=== PATIENT | female | born 1985 | race Caucasian/White ===

== ENCOUNTER 2016-12-26 19:11 | Emergency (ER) | payer MEDICAID ==
[2014-03-24 01:52] VITALS: BMI 30.3
[~2016-12-26 19:11] MED LIST: IBUPROFEN800 MG PO; PERCOCET 5-3251 TAB PO; PRENATAL COMPLE1 TAB PO
[2016-12-26 20:00] LABS: BASOPHILS 0.3 % (0.0-2.0); EOSINOPHILS 1.9 % (0-7); HEMATOCRIT 38.7 % (36.0-48.0); IMMATURE GRANULOCYTES 0.1 % (0-5); MCHC 33.6 g/dL (31.0-37.0); MCV 86.4 fL (80.0-100.0); MEAN PLATELET VOLUME 9.8 fL (7.4-10.4); MONOCYTES 9.9 % (2-11); NEUTROPHILS 58.8 % (40-80); PLATELET COUNT 272 10x3/uL (130-400); RBC 4.48 10x6/uL (4.00-5.40); RDW 13.1 % (11.5-14.5); WBC 7.8 10x3/uL (4.8-10.8)
[2016-12-26 20:21] LABS: ALBUMIN 3.9 g/dL (3.4-5.0); ALKALINE PHOSPHATASE 56 U/L (46-116); ALT (SGPT) 15 U/L (10-68); CALC OSMOLALITY 273 mosm/kg (275-300); CALCIUM 9.1 mg/dL (8.5-10.1); CARBON DIOXIDE 26.6 mmol/L (21.0-32.0); CHLORIDE - SERUM 102 mmol/L (98-107); CREATININE - SERUM 0.6 mg/dL (0.6-1.3); GLUCOSE 88 mg/dL (74-106); POTASSIUM - SERUM 3.4 mmol/L (3.5-5.1); PROTEIN - SERUM 7.5 g/dL (6.4-8.2); SODIUM 138 mmol/L (136-145); UREA NITROGEN 11 mg/dL (7-18); eGFR NON AFRICAN AMERICAN > 90 mL/min (90-120)
[2016-12-26 22:50] LABS: APPEARANCE CLEAR (CLEAR); BACTERIA MANY /hpf (NONE SEEN); BILIRUBIN NEGATIVE (NEGATIVE); COLOR YELLOW (YELLOW); EPITHELIAL CELLS 0-5 /hpf (0-5); GLUCOSE NEGATIVE (NEGATIVE); KETONE NEGATIVE (NEGATIVE); LEUKOCYTE ESTERASE 1+ (NEGATIVE); NITRITE POSITIVE (NEGATIVE); PROTEIN NEGATIVE (NEGATIVE); RED CELLS - URINE OCC /hpf (0-5); UROBILINOGEN NORMAL (NORMAL); WHITE CELLS - URINE 0-5 /hpf (0-5)
== END 2016-12-26 23:05 | disposition home or self-care (01) ==
LOC: D.ER 19:11
PROVIDERS: Emergency Medicine
DX: O20.8 Other hemorrhage in early pregnancy (principal); Z3A.01 Less than 8 weeks gestation of pregnancy

== ENCOUNTER 2016-12-31 16:08 | Emergency (ER) | payer MEDICAID ==
[2014-03-24 01:52] VITALS: BMI 30.3
[2016-12-31 17:05] LABS: BASOPHILS 0.1 % (0.0-2.0); EOSINOPHILS 1.9 % (0-7); HEMATOCRIT 37.3 % (36.0-48.0); HEMOGLOBIN 12.5 g/dL (12-16); IMMATURE GRANULOCYTES 0.1 % (0-5); LYMPHOCYTES 25.9 % (15-50); MCH 29.1 pg (26.0-34.0); MCHC 33.5 g/dL (31.0-37.0); MCV 86.7 fL (80.0-100.0); MEAN PLATELET VOLUME 9.8 fL (7.4-10.4); PLATELET COUNT 267 10x3/uL (130-400); RDW 13.3 % (11.5-14.5); WBC 7.4 10x3/uL (4.8-10.8)
[2016-12-31 17:20] LABS: HCG SERUM POSITIVE (NEGATIVE)
[2016-12-31 17:44] LABS: ALBUMIN 3.7 g/dL (3.4-5.0); ALKALINE PHOSPHATASE 56 U/L (46-116); ALT (SGPT) 16 U/L (10-68); BILIRUBIN - TOTAL 0.15 mg/dL (0.2-1.3); CALC OSMOLALITY 271 mosm/kg (275-300); CALCIUM 8.4 mg/dL (8.5-10.1); CARBON DIOXIDE 24.2 mmol/L (21.0-32.0); CHLORIDE - SERUM 102 mmol/L (98-107); CREATININE - SERUM 0.6 mg/dL (0.6-1.3); GLUCOSE 98 mg/dL (74-106); POTASSIUM - SERUM 3.5 mmol/L (3.5-5.1); PROTEIN - SERUM 7.3 g/dL (6.4-8.2); SODIUM 137 mmol/L (136-145); UREA NITROGEN 8 mg/dL (7-18); eGFR NON AFRICAN AMERICAN > 90 mL/min (90-120)
[2016-12-31 17:55] LABS: HCG - QUANTITATIVE (MATERNAL) 65692 mIU/mL
== END 2016-12-31 20:09 | disposition home or self-care (01) ==
LOC: D.ER 16:08
PROVIDERS: Emergency Medicine
DX: O26.891 Other specified pregnancy related conditions, first trimester (principal); Z3A.08 8 weeks gestation of pregnancy; R10.9 Unspecified abdominal pain; N93.9 Abnormal uterine and vaginal bleeding, unspecified

== ENCOUNTER 2017-02-11 10:49 | Emergency (ER) | payer MEDICAID ==
[2014-03-24 01:52] VITALS: BMI 30.3
[2017-02-11 11:34] LABS: BASOPHILS 0.1 % (0-2); EOSINOPHILS 1.6 % (0-7); HEMATOCRIT 39.7 % (36.0-48.0); HEMOGLOBIN 13.3 g/dL (12-16); IMMATURE GRANULOCYTES 0.1 % (0-5); MCH 28.9 pg (26.0-34.0); MCHC 33.5 g/dL (31.0-37.0); MCV 86.1 fL (80.0-100.0); MEAN PLATELET VOLUME 9.6 fL (7.4-10.4); MONOCYTES 6.1 % (2-11); NEUTROPHILS 68.1 % (40-80); PLATELET COUNT 285 10x3/uL (130-400); RBC 4.61 10x6/uL (4.00-5.40); RDW 12.8 % (11.5-14.5); WBC 7.7 10x3/uL (4.8-10.8)
[2017-02-11 11:52] LABS: HCG SERUM POSITIVE (NEGATIVE)
[2017-02-11 12:01] LABS: ALBUMIN 3.5 g/dL (3.4-5.0); ALKALINE PHOSPHATASE 61 U/L (46-116); ALT (SGPT) 19 U/L (10-68); BILIRUBIN - TOTAL 0.23 mg/dL (0.2-1.3); CALC OSMOLALITY 270 mosm/kg (275-300); CALCIUM 8.8 mg/dL (8.5-10.1); CARBON DIOXIDE 28.1 mmol/L (21.0-32.0); CHLORIDE - SERUM 103 mmol/L (98-107); CREATININE - SERUM 0.6 mg/dL (0.6-1.3); GLUCOSE 89 mg/dL (74-106); POTASSIUM - SERUM 3.6 mmol/L (3.5-5.1); PROTEIN - SERUM 7.9 g/dL (6.4-8.2); SODIUM 137 mmol/L (136-145); UREA NITROGEN 7 mg/dL (7-18); eGFR NON AFRICAN AMERICAN > 90 mL/min (90-120)
[2017-02-11 12:03] LABS: APPEARANCE CLOUDY (CLEAR); BILIRUBIN NEGATIVE (NEGATIVE); COLOR YELLOW (YELLOW); GLUCOSE NEGATIVE (NEGATIVE); KETONE NEGATIVE (NEGATIVE); LEUKOCYTE ESTERASE 1+ (NEGATIVE); NITRITE NEGATIVE (NEGATIVE); PROTEIN NEGATIVE (NEGATIVE); UROBILINOGEN NORMAL (NORMAL)
[2017-02-11 12:05] LABS: AMORPHOUS SEDIMENT >1+ /lpf (NONE SEEN); BACTERIA FEW /hpf (NONE SEEN); EPITHELIAL CELLS 0-5 /hpf (0-5); MUCUS <1+ /lpf (NONE SEEN); RED CELLS - URINE NONE SEEN /hpf (0-5); WHITE CELLS - URINE 0-5 /hpf (0-5)
[2017-02-11 12:25] LABS: HCG - QUANTITATIVE (MATERNAL) 17500 mIU/mL
== END 2017-02-11 14:37 | disposition home or self-care (01) ==
LOC: D.ER 10:49
PROVIDERS: Emergency Medicine
DX: O26.891 Other specified pregnancy related conditions, first trimester (principal); Z3A.13 13 weeks gestation of pregnancy; R10.84 Generalized abdominal pain; N39.0 Urinary tract infection, site not specified

== ENCOUNTER → 2017-02-19 07:48 | Outpatient (CLI) | payer MEDICAID ==
[2014-03-24 01:52] VITALS: BMI 30.3
== END | disposition home or self-care (01) ==
LOC: D.US 07:48
DX: R10.11 Right upper quadrant pain (principal); R11.2 Nausea with vomiting, unspecified

== ENCOUNTER → 2017-07-04 03:47 | Outpatient (CLI) | payer MEDICAID ==
[2014-03-24 01:52] VITALS: BMI 30.3
[~2017-07-04 03:47] MED LIST changes: +HYDROCODONE-APA1 TAB PO; +IBUPROFEN600 MG PO
[2017-07-04 04:39] LABS: APPEARANCE CLOUDY (CLEAR); BILIRUBIN NEGATIVE (NEGATIVE); COLOR YELLOW (YELLOW); GLUCOSE 100 mg/dL (NEGATIVE); KETONE NEGATIVE (NEGATIVE); NITRITE NEGATIVE (NEGATIVE); PROTEIN TRACE mg/dL (NEGATIVE); UROBILINOGEN NORMAL (NORMAL)
[2017-07-04 04:41] LABS: BACTERIA MODERATE /hpf (NONE SEEN); EPITHELIAL CELLS 0-5 /hpf (0-5); RED CELLS - URINE 0-5 /hpf (0-5)
== END | disposition home or self-care (01) ==
LOC: D.LDO 03:47
PROVIDERS: Obstetrics & Gynecology
DX: O26.893 Other specified pregnancy related conditions, third trimester (principal); Z3A.34 34 weeks gestation of pregnancy; R11.2 Nausea with vomiting, unspecified; R10.9 Unspecified abdominal pain

== ENCOUNTER → 2017-07-10 23:21 | Outpatient (CLI) | payer MEDICAID ==
[2014-03-24 01:52] VITALS: BMI 30.3
== END | disposition home or self-care (01) ==
LOC: D.LDO 23:21
DX: O24.913 Unspecified diabetes mellitus in pregnancy, third trimester (principal); Z3A.35 35 weeks gestation of pregnancy

== ENCOUNTER → 2017-07-15 07:51 | Outpatient (CLI) | payer MEDICAID ==
[2014-03-24 01:52] VITALS: BMI 30.3
== END | disposition home or self-care (01) ==
LOC: D.LDO 07:51
DX: O24.913 Unspecified diabetes mellitus in pregnancy, third trimester (principal); Z3A.35 35 weeks gestation of pregnancy

== ENCOUNTER → 2017-07-18 07:24 | Outpatient (CLI) | payer MEDICAID ==
[2014-03-24 01:52] VITALS: BMI 30.3
[2017-07-18 09:27] LABS: UDS - AMPHET NEGATIVE QUAL (NEGATIVE); UDS - BARB NEGATIVE QUAL (NEGATIVE); UDS - BENZO NEGATIVE QUAL (NEGATIVE); UDS - COCAINE NEGATIVE QUAL (NEGATIVE); UDS - OPIATE NEGATIVE QUAL (NEGATIVE); UDS - PCP NEGATIVE QUAL (NEGATIVE); UDS - THC NEGATIVE QUAL (NEGATIVE)
[2017-07-18 09:32] LABS: APPEARANCE CLEAR (CLEAR); BACTERIA FEW /hpf (NONE SEEN); BILIRUBIN NEGATIVE (NEGATIVE); COLOR YELLOW (YELLOW); EPITHELIAL CELLS 0-5 /hpf (0-5); GLUCOSE NEGATIVE (NEGATIVE); GRANULAR CAST 0-5 /lpf (NONE SEEN); KETONE NEGATIVE (NEGATIVE); MUCUS <1+ /lpf (NONE SEEN); NITRITE NEGATIVE (NEGATIVE); PROTEIN NEGATIVE (NEGATIVE); UROBILINOGEN NORMAL (NORMAL); WHITE CELLS - URINE 0-5 /hpf (0-5)
== END | disposition home or self-care (01) ==
LOC: D.LDO 07:24
PROVIDERS: Obstetrics & Gynecology
DX: O26.893 Other specified pregnancy related conditions, third trimester (principal); Z3A.36 36 weeks gestation of pregnancy

== ENCOUNTER → 2017-07-23 07:45 | Outpatient (CLI) | payer MEDICAID ==
[2014-03-24 01:52] VITALS: BMI 30.3
== END | disposition home or self-care (01) ==
LOC: D.LDO 07:45
DX: O24.419 Gestational diabetes mellitus in pregnancy, unspecified control (principal); Z3A.37 37 weeks gestation of pregnancy

== ENCOUNTER → 2017-07-25 09:47 | Outpatient (CLI) | payer MEDICAID ==
[2014-03-24 01:52] VITALS: BMI 30.3
== END | disposition home or self-care (01) ==
LOC: D.LDO 09:47
DX: O24.419 Gestational diabetes mellitus in pregnancy, unspecified control (principal); Z3A.37 37 weeks gestation of pregnancy

== ENCOUNTER 2017-07-26 04:56 | Inpatient (IN) | payer MEDICAID ==
[2017-07-26] VITALS (9 sets, daily range): BP systolic 97–111; BP diastolic 53–60; Ht 170.2 cm; Wt 93.0 kg
[~2017-07-26] VITALS: Ht 170.2 cm; Wt 93.0 kg
[~2017-07-26 04:56] MED LIST changes: -HYDROCODONE-APA1 TAB PO; -IBUPROFEN600 MG PO
[2017-07-26 05:44] LABS: HEMATOCRIT 36.1 % (36.0-48.0); HEMOGLOBIN 11.7 g/dL (12-16); MCH 26.6 pg (26.0-34.0); MCHC 32.4 g/dL (31.0-37.0); MEAN PLATELET VOLUME 10.6 fL (7.4-10.4); RBC 4.4 10x6/uL (4.00-5.40); RDW 13.8 % (11.5-14.5); WBC 8.7 10x3/uL (4.8-10.8)
--- NOTE | 2017-07-26 07:55 | NUR ---
0705 BABY TRANSFERED TO [facility] WITH NURSE AND FATHER
--- NOTE | 2017-07-26 08:12 | NUR ---
FUNDUS IS FIRM, MIDLINE AT THE UMBILICUS. JOSEPH PAD IN PLACE, MODERATE RUBRA.
--- NOTE | 2017-07-26 08:42 | NUR ---
fundus midline, firm and -1. bleeding small, no clots noted.
--- NOTE | 2017-07-26 09:08 | NUR ---
Patient to room from recovery at this time. Care assumed by this nurse. Patient denies pain at this time. VS wnl. SCD boots in place, incentive spirometer provided with education on use. Pt verbalizes understanding. chery catheter in place, draining well. stat lock applied and chery emptied of 500ml clear yellow urine. Low abdominal transverse dressing in place with small amt of serosanguinous drainage noted. significant other at bedside. Ice water provided, pt denies any other needs at this time.
--- NOTE | 2017-07-26 09:23 | NUR ---
fundus firm,midline. -1 bleeding small
--- NOTE | 2017-07-26 09:44 | NUR ---
TORADOL 30MG SLOW IVP AT THIS TIME PER MD ORDERS.
--- NOTE | 2017-07-26 09:48 | NUR ---
FUNDUS FIRM, MIDLINE, -1. BLEEDING RUBRA,SMALL. REAGAN CATHETER EMPTIED OF 175ML CLEAR YELLOW URINE. DILAUDID VISUAL C DEVELOPER INITIATED AT THIS TIME PER MD ORDERS AND PT TEACHING DONE ON MEDICATION AND USE. ICE TO INCISION REMAINS IN PLACE.
--- NOTE | 2017-07-26 10:50 | NUR ---
PATIENT SITTING UP IN BED INFANT AT THIS TIME. CRAMPING PAIN 2/10 TO ABDOMEN. FUNDUS REMAINS FIRM,ML-2. BLEEDING SCANT, REAGAN CATHETER DRAINING WITHOUT ISSUES, 150ML CLEAR YELLOW URINE EMPTIED FROM REAGAN CATHETER.
--- NOTE | 2017-07-26 12:21 | NUR ---
PATIENT SITTING IN BED, EATING LUNCH. ADMIT ASSESSMENT PERFORMED. REAGAN CATHETER EMPTIED OF 100ML CLEAR YELLOW URINE, FUNDUS FIRM,MIDLINE,-2, BLEEDIN SMALL. PERICARE PERFORMED AND PAD CHANGED.
[2017-07-26 14:06] LABS: BASOPHILS 0.1 % (0-2); EOSINOPHILS 0.2 % (0-7); HEMATOCRIT 29.8 % (36.0-48.0); HEMOGLOBIN 9.6 g/dL (12-16); IMMATURE GRANULOCYTES 0.3 % (0-5); LYMPHOCYTES 11.8 % (15-50); MCH 26.7 pg (26.0-34.0); MCHC 32.2 g/dL (31.0-37.0); MCV 82.8 fL (80.0-100.0); MEAN PLATELET VOLUME 9.3 fL (7.4-10.4); NEUTROPHILS 81.6 % (40-80); RDW 13.6 % (11.5-14.5)
[2017-07-26 14:07] LABS: PLATELET COUNT 250 10x3/uL (130-400); WBC 14.4 10x3/uL (4.8-10.8)
--- NOTE | 2017-07-26 14:38 | NUR ---
PATIENT LYING IN BED TALKING ON CELL PHONE. DENIES NEEDS, STATES PAIN REMAINS THE SAME- 2/10 CRAMPS TO ABDOMEN.
--- NOTE | 2017-07-26 15:47 | NUR ---
PATIENT SITTING IN BED HOLDING AT THIS TIME. DENIES NEEDS. STATES PAIN REMAINS THE SAME, SPRAY GUN STRIPER IN USE. 200ML CLEAR YELLOW URINE NOTED IN REAGAN.
--- NOTE | 2017-07-26 16:35 | NUR ---
PT NOTED THAT AT HER IV SITE ABOVE IT IS BRUISED. IV IS PATENT. NONTENDER AT SITE. NO SWELLING NOTED.
--- NOTE | 2017-07-26 17:04 | NUR ---
PATIENT SITTING UP IN BED HOLDING INFANT, PT C/O CRAMPING PAIN 5/10, TORADOL 30MG IVP GIVEN PER PT REQUEST AND MD ORDER. 100ML CLEAR YELLOW URINE EMPTIED FROM REAGAN AT THIS TIME. PERICARE PERFORMED AND PADS CHANGED. PT DENIES OTHER NEEDS AT THIS TIME.
--- NOTE | 2017-07-26 17:07 | NUR ---
PT IS SITTING UP IN BED BABY. SHE OFFERS NO COMPLAINTS. BED IS LOW. SIDE RAILS UP X 2 AND CALL LIGHT IN REACH.
--- NOTE | 2017-07-26 19:05 | NUR ---
Patient report given to manager night at this time to assume patient care.
--- NOTE | 2017-07-26 19:45 | NUR ---
ASSESSMENT PER FLOW SHEET, VS OBTAINED, IV IN LEFT FA INTACT WITH NO REDNESS OR EDEMA INFUSING VIA PUMP NS WITH PITOCIN AT 125 ML/HR, DILAUDID REAL TIME ANALYST TO DELIVER 0.2MG/10MINS PER PTS DEMAND FOR PAIN CONTROL, PT RATES INC PAIN 01/07, PT INST ON AND VERBALIZES UNDERSTANDING OF REAL TIME ANALYST, PT STATES "I DON'T REALLY DO WELL WITH PAIN MEDICINE, THAT IBUPROFEN I HAD EARLIER DID GOOD FOR ME", FF, ML, U/1, LITE-MOD BLEEDING NOTED WITH A QUARTER SIZE CLOT ON PAD, JOSEPH CARE DONE WITH WET WARM WASH CLOTHS, BLUE CHUX AND JOSEPH PAD CHANGED, BIKINI INC WITH SMALL DRESSING INTACT, DRIED DRAINAGE CIRCLED WITH PEN, FRESH ICE PACK TO ABD, REAGAN CATH INTACT, DRAINING CLEAR YELLOW URINE, PT INST ON AND DEMONSTRATED I.S., SCD'S ON AND WORKING PROPERLY, TOP BLANKET PROVIDED, PT DENIES FURTHER NEEDS, BABY AND FAMILY IN ROOM REAGAN CATH INTACT, DRAINING CLEAR YELLOW URINE, BIK
--- NOTE | 2017-07-26 20:00 | NUR ---
DR. FRIAS CALLED AND INFORMED THAT PT. DESIRED TO AMBULATE. ORDERS RECEIVED.
--- NOTE | 2017-07-26 20:49 | NUR ---
POC DISCUSSED WITH PT, PT STATES "OH GOOD, I AM SO READY TO GET THIS CATHETER OUT AND STOP THAT PITOCIN, IT JUST MAKES ME CRAMP", IV CONVERTED TO SALINE LOCK, FLUSHED WITH 10 MLS OF NS WITH NO DIFFICULTY, REAGAN CATH REMOVED, TIP INTACT, EMPTIED 400 MLS OF CLEAR YELLOW URINE, PT INST ON AND VERBALIZES USING CALL LIGHT WHEN NEEDING TO VOID, JOSEPH CARE DONE WITH WET WARM WASH CLOTH, FRESH JOSEPH PAD PLACED, PT INST ON PAIN MED, PT STATES "I JUST DON'T DO WELL WITH PAIN MED", INFORMED PT THAT I WILL SEE ABOUT GETTING A NORCO 5 ORDERED INSTEAD OF THE NORCO 10, PT VERBALIZES UNDERSTANDING, PT INST TO USE CALL LIGHT WHEN AND IF SHE DECIDES ON PAIN MED, INFORMED PT THAT I WILL ADM THE MOTRIN WHEN DUE, PT VERBALIZES UNDERSTANDING, DENIES FURTHER NEEDS AT THIS TIME
--- NOTE | 2017-07-26 21:13 | NUR ---
BABY TO ROOM VIA OPEN CRIB CART PER NSY NURSE, TRASH REMOVED, ASSISTED FOB WITH COUCH, PT DENIES FURTHER NEEDS
--- NOTE | 2017-07-26 21:45 | NUR ---
PT AWAKE, C/O INC PAIN, DECIDES TO TAKE PAIN MED, ALLERGIES GONE OVER WITH PT, DENIES ALLERGY TO ANY MEDICATION, ADM NORCO 5 PO PER MD ORDERS, SEE EMAR, PT DENIES FURTHER NEEDS, FOB ASLEEP ON COUCH
--- NOTE | 2017-07-26 22:39 | NUR ---
PT REESTING WITH EYES CLOSED, RESP QUIET, NO DISTRESS NOTED, LEFT UNDISTURBED AT THIS TIME, FOB ASLEEP ON COUCH, BABY BACK IN NSY
[2017-07-27 00:33] VITALS: BP 109/61
--- NOTE | 2017-07-27 00:33 | NUR ---
PT AWAKE, HOLDING BABY, BABY TO OPEN CRIB CART, VS OBTAINED, PT UP TO BR WITH ASSISTANCE, GAIT STEADY, PT VOIDED MISSING [place] HAT, LARGE AMOUNT NOTED BY SOUND, JOSEPH PAD, PANTIES AND GOWN CHANGED, PT BACK TO BED, ADM MOTRIN PO PER MD ORDERS, SEE EMAR, SCD'S BACK ON AND WORKING PROPERLY, PT DENIES FURTHER NEEDS
--- NOTE | 2017-07-27 01:00 | NUR ---
SHIFT REPORT TO BHARATHI REYES RN
--- NOTE | 2017-07-27 01:20 | NUR ---
SLEEPING DURING ROUNDS. LEFT UNDISTURBED. INFANT IN THE ROOM IN OPEN CRIB.
--- NOTE | 2017-07-27 01:58 | NUR ---
AMBULATED IN THE LUKE WITH SPOUSE. BROUGHT TO THE NURSERY IN OPEN CRIB.
--- NOTE | 2017-07-27 02:33 | NUR ---
C/O INCISIONAL PAIN, REQUESTS PAIN MED RATES PAIN 6 OUT OF 10 ON PAIN SCALE. NORCO GIVEN PER MD ORDERS. FRESH ICE WATER PROVIDED TO PATIENT. C/L IN EASY REACH. DENIES OTHER NEEDS AT THIS TIME. RESP EVEN AND UNLABORED.
--- NOTE | 2017-07-27 04:00 | NUR ---
BROUGHT INFANT TO MOM FOR FEEDINGS. MOM STATES SHE WILL FEED BABY UNTIL IS READY TO "EAT." V/S RE-CHECKED--STABLE.
[2017-07-27 05:14] LABS: RAPID PLASMA REAGIN Non Reactive (Non Reactive)
--- NOTE | 2017-07-27 06:25 | NUR ---
BROUGHT HER BABY BACK TO THE NURSERY IN OPEN CRIB. PAIN LEVEL 8/10 FROM ABD INCISION AND SHOULDERS. NORCO / MOTRIN PO GIVEN FOR PAIN CONTROL. SCD'S RESUMED. FOB IN THE ROOM. SPLEPT FAIRLY DURING THE NIGHT. CONTINUING PLAN OF CARE.
--- NOTE | 2017-07-27 07:00 | NUR ---
REPORT GIVEN TO AM SHIFT NURSES.
[2017-07-27 07:23] LABS: BASOPHILS 0.1 % (0-2); EOSINOPHILS 2.3 % (0-7); HEMATOCRIT 27.3 % (36.0-48.0); HEMOGLOBIN 8.9 g/dL (12-16); IMMATURE GRANULOCYTES 0.2 % (0-5); LYMPHOCYTES 17.7 % (15-50); MCH 27.1 pg (26.0-34.0); MCHC 32.6 g/dL (31.0-37.0); MCV 83.2 fL (80.0-100.0); MEAN PLATELET VOLUME 8.9 fL (7.4-10.4); MONOCYTES 5.9 % (2-11); NEUTROPHILS 73.8 % (40-80); PLATELET COUNT 228 10x3/uL (130-400); RBC 3.28 10x6/uL (4.00-5.40); RDW 14.2 % (11.5-14.5); WBC 11.4 10x3/uL (4.8-10.8)
--- NOTE | 2017-07-27 08:00 | NUR ---
Upon entering room pt is tilted to her right side with eyes closed but begins talking when nurse says her name. Rates her pain at 2-3/10. Incision with nicolette clean and dry, bandage has been recently removed by DR Fernando. fundus firm at u/u, pt denies any clots with voids. SCD's in place and pt states she just removes them to get up to bathroom. Denies any needs at this time. Side rails up x 2 with phone and call light in reach.
--- NOTE | 2017-07-27 09:40 | NUR ---
CALLED TO ROOM, PT HAS MULTIPLE QUESTIONS ABOUT INFANT FEEDING. REDIRECTED HER TO NURSERY NURSE AND UPDATED HER WHITEBOARD TO INCLUDE NURSERY NUMBER TO CALL FOR NEEDS. SHE DENIES ANY QUESTIONS AT THIS TIME.
--- NOTE | 2017-07-27 10:43 | NUR ---
PT'S SPOUSE TO NURSE DESK INQUIRING IF PT CAN REMOVE PANTIES. RN TO PT BEDSIDE AT THIS TIME. PT REPORTS BURNING AT INCISION AND STATES "IT FEELS BETTER WITHOUT THE PANTIES ON." PT DESIRES TO CUT PANTIES OFF DUE TO SCD'S BEING IN PLACE. ADV PT TO REMOVE SCD'S AND TAKE PANTIES OFF THAT WAY SINCE SHE IS ABLE TO REUSE THE UNDERWEAR. PT VERBALIZED UNDERSTANDING AND SPOUSE TAKES SCD'S OFF AT THIS TIME. EDU PT THAT SHE DOES NOT NEED TO WEAR SCD'S IF AMB OFTEN. PT STATES "THEY FEEL NICE ON MY LEGS." PT DENIES FURTHER NEEDS AT THIS TIME.
--- NOTE | 2017-07-27 12:01 | NUR ---
REGULAR DIET SERVED, PT IS RESTING WITH EYES CLOSED AND RESP EVEN, NO DISTRESS NOTED AT THIS TIME, PT LEFT UNDISTURBED AT THIS TIME. SIDE RAILS NOTED TO BE UP X 2 WITH CALL LIGHT IN REACH.
--- NOTE | 2017-07-27 12:30 | NUR ---
Called to room, pt has concerns about incision "burning" reassured that this is expected, no reddness or swelling at incision site, area is clean and dry. Rates pain at 8/10 and ask for pain medication if available.
--- NOTE | 2017-07-27 12:48 | NUR ---
Pain med given as requested and charted on emar. Pt complains of "throbbing" at top of her left shoulder that comes and goes with but never really goes away. States that she talked to Dr Fernando about it this am and was to tell nurse when it started hurting again. Pt states that started after admit yesterday but noticed it before her delivery. Explained that md would be notified. IV to left inner forearm with noticable bruising, no swelling but pt c/o tenderness at site. IV cath removed intact, covered with bandage. After saline lock removed pt voices that the throbbing in her shoulder has stopped. Visitors at bedside with infant in room. Side rails up x 2 with phone and call light in reach.
--- NOTE | 2017-07-27 13:45 | NUR ---
Called to room, pt up walking and states she is going to get in to the showerl. Bed linens changed at this time. Infant in with with FOB.
--- NOTE | 2017-07-27 15:50 | NUR ---
Call light answered, upon entering room pt is sitting up with to breast. C/O feeling like she suddenly has trouble swallowing and thinks her throat is closing. O2 sat is 99%, no difficulty speaking and able to drink wihtout difficulty. Pt is reassured but Margo Combs asked to come to room with pen light. Pt able to tilt head back to allow back of throat to be seen. No apparent swelling noted and verified with 2nd rn. Pt reassured further, denies wanted Dr Fernando called. Encouraged her to call for nurse if she feels further concern. Continue to breastfeed with call light in reach.
--- NOTE | 2017-07-27 17:45 | NUR ---
Pt denies needs or concerns at this time. Rates pain 3/10, in room and spouse at bedside.
[2017-07-27 19:56] VITALS: BP 91/58
--- NOTE | 2017-07-27 19:56 | NUR ---
SITTING UP IN BED HOLDING . NBN STAFF IN ROOM. RETURNED TO OPEN CRIB. PT. RELATES THAT PAIN IS A 4 OF 10 AND STATES IS INCISIONAL. DENIES ANY PAIN OR DISCOMFORT IN LOWER EXTREMITIES. BREATH SOUNDS CLEAR AND BOWEL SOUNDS AUDIBLE. ABD. INCISION NOTED WITH CELINE. NO REDNESS, DRAINAGE NOR EDEMA NOTED. ENCOURAGED PT. TO TAKE HER VITAMINS FOR LONG SHE BREASTFEEDS. STATES HER AND HIS MOTHER WILL HELP HER WHEN SHE RETURNS HOME. STATES HER OTHER CHILDREN LIVE WITH THEIR FATHER.
--- NOTE | 2017-07-27 20:05 | NUR ---
DEMONSTRATED USE OF INCENTIVE SPIROMETER . ABLE TO ACHIEVE UP TO 1500 ON METER. PT. STATES THAT SHE HAS USED SEVERAL DIFFERENT TYPE OF INCENTIVES IN THE PAST DUE TO CHILDHOOD ASTHMA.
--- NOTE | 2017-07-27 20:05 | NUR ---
PT. REQUEST LIGHTS DIMMED IN ROOM. STATES SHE PLANS TO SLEEP. SLEEPING IN OPEN CRIB AT BEDSIDE.
--- NOTE | 2017-07-27 21:15 | NUR ---
SITTING UP IN BED. DENIES ANY NEED FOR PAIN MED. REMAINS IN OPEN CRIB AT BEDSIDE SLEEPING. PT. REQUESTED LAN MULLINS AND SAME GIVEN.
--- NOTE | 2017-07-27 21:15 | NUR ---
INFANT CONTINUES IN MOTHER'S ROOM. RESTING QUIETLY IN CRIB AT MOM'S BEDSIDE IN NO APPARENT DISTRESS. PATRICE LLAMAS
--- NOTE | 2017-07-27 22:16 | NUR ---
APPLE JUICE AND WATER PROVIDED PER PT. REQUEST.
--- NOTE | 2017-07-27 22:17 | NUR ---
REPORTS BOWEL MOVEMENT AND C/O INCISIONAL PAIN THAT SHE RATES A 6 OF 10 ON PAIN SCALE. MEDS GIVEN ORDERED. PT. REQUESTED ON NORCO 5MG. FOB IN ROOM. SIDE RAILS UP X 2. SCDS ON AND FUNCTIONAL.
--- NOTE | 2017-07-27 22:37 | NUR ---
PT. C/O FEELING COLD. BLANKET PROVIDED PER PT. REQUEST. VITAL SIGNS OBTAINED. REMINDED PT. THAT SHE HAD BEEN DRINKING COLD APPLE JUICE. PT. STATES PAIN HAS RESOLVED AND RATES A 4 OF10 ON PAIN SCALE. FOB LYING ON SOFA.
[2017-07-27 22:38] VITALS: BP 94/56
--- NOTE | 2017-07-28 00:53 | NUR ---
LYING IN BED WITH HOB AT 30 DEGREES. ASKING ABOUT TEMP. IN ROOM. STATES SHE WAS "SWEATING". INFORMED WHAT THERMOSTAT READ AND ALSO WHAT TEMP. WAS INDICATED CURRENT ROOM TEMP. PT. DENIES NEEDS. PRESENTLY HAS BLANKETS OFF OF HER. FOB SLEEPING ON SOFA.
--- NOTE | 2017-07-28 02:55 | NUR ---
LYING ON BACK WITH HOB ELEVATED 30 DEGREE. PT. LOOKS AT DOOR WHEN THIS NURSE OPENED. DENIES ANY NEEDS.
--- NOTE | 2017-07-28 03:18 | NUR ---
INFANT TO ROOM FOR . ID BAND NUMBER OF AND MOTHER MATCHED. FOB SLEEPING ON SOFA.
--- NOTE | 2017-07-28 05:07 | NUR ---
STANDING BESIDE CRIB CHANGING DIAPER. DENIES ANY NEEDS AT THIS TIME.
--- NOTE | 2017-07-28 05:31 | NUR ---
C/O OF ABD. CRAMPING THAT SHE RATES A 4 OF 10 ON PAIN SCALE. MOTRIN GIVEN PER PT'S REQUEST. INFANT REMAINS IN ROOM AND PT. HOLDING.
--- NOTE | 2017-07-28 06:15 | NUR ---
LYING ON BACK WITH EYES CLOSED. RESPIRATIONS REGULAR.
--- NOTE | 2017-07-28 07:55 | NUR ---
PT IN SEMI FOWLERS POSITION RESTING WITH EYES CLOSED. AROUSES TO VERBAL STIMULATION. INFANT RESTING QUIETLY IN CRIB. PT REQUESTS TO SLEEP A "BIT" LONGER PRIOR TO ASSESSMENT. PT DENIES FURTHER NEEDS AT THIS TIME.
[2017-07-28 08:35] VITALS: BP 93/50
--- NOTE | 2017-07-28 08:35 | NUR ---
PT IN SEMI FOWLERS POSITON. PHYSICAL ASSESSMENT DONE, SEE SHIFT ASSESSMENT. FUNDUS FIRM U/U, BLADDER DISTENDED. PT REPORTS THAT SHE FEELS URGE TO VOID BUT HAS NOT YET DUE TO RESTING AND BREAKFAST. PT ENCOURAGED TO VOID MORE FREQUENTLY AND VERB. UNDERSTANDING. PFANENSTIEL INCISION NOTED TO BE CLEAN DRY AND INTACT WITH CELINE IN PLACE. INSTRUCTIONS ON INCISION CARE GIVEN AT THIS TIME. PT VERBALIZES UNDERSTANDING. BS ACTIVE AND PT REPORTS HAVING SMALL BM YESTERDAY AND CONTINUES TO PASS GAS. EXPLAINED TO PT THAT SHE WAS NON-IMMUNE TO RUBELLA AND INFO REGARDING THE MMR VACCINE GIVEN VERBALLY AND WRITTEN. PT STATES, "I AM NOT GETTING A VACCINE BEFORE MY CELINE COME OUT". PT ALSO REFUSES FLU VACCINE AT THIS TIME. RATES PAIN 1/10 AND DENIES NEED FOR PAIN MEDICATION. WILL BEGIN WORKING ON DC INSTRUCTIONS.
[2017-07-28] MEDS ORDERED: HYDROCODONE-APA1 TAB PO (09:16)
[2017-07-28] MEDS ORDERED: IBUPROFEN600 MG PO (09:17)
--- NOTE | 2017-07-28 10:30 | NUR ---
PT SITTING UP IN BED . PT DENIES PAIN OR NEEDS AT THIS TIME.
--- NOTE | 2017-07-28 12:30 | NUR ---
PT SITTING UP ON SIDE OF BED EATING LUNCH TRAY. WRITTEN AND VERBAL DISCHARGE INSTRUCTIONS GIVEN. PRESCRIPTIONS GIVEN FOR MOTRIN AND NORCO. DISCUSSED IN DETAIL, CARE OF INCISION AND TIPS. PT AND FOB VERBALIZE UNDERSTANDING AND DENY FURTHER QUESTIONS OR NEEDS AT THIS TIME.
--- NOTE | 2017-07-28 14:00 | NUR ---
PT TAKEN TO PRIVATE VEHICLE VIA WC WITH IN CARRIER. PT DENIES FURTHER QUESTIONS OR NEEDS
--- NOTE | 2017-09-12 14:48 | OP ---
PATIENT NAME: JAMIE BURNETT MEDICAL RECORD: [id number] :86 LOCATION:[facility].1278 ADMISSION DATE:07/26/17 SURGEON: FIDEL FERNANDO MD DATE OF OPERATION: 07/26/2017 PREOPERATIVE DIAGNOSES: 1. Term intrauterine at 37 weeks and 3 days. 2. Yayo breech presentation. 3. Spontaneous rupture of membranes. POSTOPERATIVE DIAGNOSES: 1. Term intrauterine at 37 weeks and 3 days. 2. Yayo breech presentation. 3. Spontaneous rupture of membranes. PROCEDURE: Primary low transverse section via Pfannenstiel skin incision. SURGEON: Fidel Fernando MD ESTIMATED BLOOD LOSS: 1000 cc. ANESTHESIA: Spinal. SPECIMENS: Placenta and cord for gases. FINDINGS: 1. Viable infant, Apgars 9 at 1 and 9 at 5. 2. Yayo breech presentation. 3. Placenta delivered manually intact, 3-vessel cord noted. 4. Grossly normal adnexa bilaterally. COMPLICATIONS: None apparent. PROCEDURE IN DETAIL: The patient was taken to the operating room where regional anesthesia was achieved without difficulty. The patient was then prepped and draped in normal sterile fashion in the dorsal supine position. SCDs were on and functioning normally. A De catheter had been placed and was draining freely. At this point, a Pfannenstiel skin incision was made with scalpel and excised downward through the underlying subcutaneous fat to level of the fascia, which was then nicked in the midline and excised bilaterally using the Umana scissors. The superior and inferior aspects of the fascial incision were then grasped with Babs clamps times 2, tented upward, and sharply dissected from the underlying rectus muscle using the Bovie cautery and the Umana scissors. Rectus muscles were then bluntly in the midline and the peritoneum entered sharply at the superior aspect using the Metzenbaum scissors. The pyramidalis muscle was excised in its midline and the peritoneum was excised bilaterally using the Metzenbaum scissors with direct visualization of the bladder. At this point, a bladder blade was placed into the pelvis. A bladder flap was created by excising the anterior leaf of the broad ligament across the lower uterine segment. A low transverse incision was then made with the scalpel and the final layers of myometrium entered bluntly using a finger and the uterine incision was extended superiorly and inferiorly using the Pelosi method. At this point, the breech was identified and rotated to back up at which point, the breech and legs were delivered without difficulty. The right arm was then OPERATIVE REPORT [id number] JAMIE BURNETT delivered followed by the left and then the head without any significant entrapment or delay. was bulb suctioned immediately upon delivery. The cord was clamped times 2, cut, and the was handed to the awaiting nursery team. Cord was obtained for gases and the placenta was removed manually intact. The uterus was exteriorized, cleared of all clots and debris, and vigorously massaged until a good uterine tone was noted. Uterine incision was repaired with 0 Vicryl in a running locked fashion times 2 with good hemostasis noted. Posterior cul-de-sac was then thoroughly irrigated and uterus replaced into the pelvis. The anterior cul-de-sac was then irrigated and the uterine incision was found to be hemostatic. Counts were correct times 2 for needles, instruments, and sponges and the fascia was then repaired with 0 loop PDS times 1. The subcutaneous tissue approximated with 3-0 plain gut and the skin repaired with nicolette. The patient tolerated the procedure well, was transferred to postanesthesia recovery stable without incident. TRANSINT:[id number] Voice Confirmation ID: [id number] DOCUMENT ID: [id number] FIDEL FERNANDO MD at 1448 CC: [id number] DICTATION DATE: 09/06/17 0746 BILLET CHECKER: 09/06/17 1029 DIS IN 07/28/17 [facility] [address] [place] [address]
--- NOTE | 2017-09-25 17:04 | DS ---
PATIENT:JAMIE BURNETT :87 MEDICAL RECORD: [id number] DISCHARGE SUMMARY ADMISSION DATE: 07/26/17 DISCHARGE DATE: 07/28/17 The patient was admitted on 07/26/2017. HISTORY: A 31-year-old G4, P3 at 37 weeks and 3 days, who presented with spontaneous rupture of membranes and breech presentation. The patient was noted to be A positive, group B strep negative, and rubella nonimmune. 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 PAST SURGICAL HISTORY: The patient reported no significant past surgical history. FAMILY HISTORY: The patient reported no significant family history. SOCIAL HISTORY: Negative times 3 per the patient. PHYSICAL EXAMINATION: On initial assessment; LUNGS: Clear to auscultation. CARDIOVASCULAR: Regular rate and rhythm. PELVIC: Uterus was appropriately sized and nontender. The patient was noted to be grossly ruptured. EXTREMITIES: Lower extremities were free of Homans sign, erythema, or swelling. VITAL SIGNS: Vital signs were found to be stable. LABORATORY DATA: Admit hemoglobin was found to be 11.7 with a platelet count of 143. heart rate was category 1 in the 130s with moderate variability. HOSPITAL COURSE: The patient was consented and was performed without difficulty. Operative report is as dictated. The patient did well overnight. On postop day #0, tolerating Dilaudid CAMERA ENGINEER, IV Toradol, IV fluids, and clear liquid diet. De catheter was placed and was draining freely. On the morning of postoperative day #1, the patient was doing well. Vital signs were stable. The patient was afebrile. Hemoglobin was found to be 9.6. Incision was clean, dry, and intact and uterus was infraumbilical and nontender. At this point, De catheter was discontinued and ambulation was begun. The patient was advanced to general diet and p.o. pain meds. The patient did well overnight on postop day #1. On the morning of postoperative day #2, the patient remained afebrile. Vital signs remained stable. Incision was clean, dry, and intact. Uterus was infraumbilical and nontender with minimal lochia. The patient was discharged home on postop day #2 with instructions to follow up for staple removal. TRANSINT:[id number] Voice Confirmation ID: [id number] DOCUMENT ID: [id number] DISCHARGE SUMMARY REPORT [id number] JAMIE BURNETT, ALMAS Kovacs MD at 1704 CC: [id number] DICTATION DATE: 09/15/17317 STEAM SERVICE INSPECTOR: 09/15/17 1141 DIS IN 07/28/17 [facility] [address] [place] [address]
--- NOTE | 2017-09-25 17:04 | OP ---
PATIENT NAME: JAMIE BURNETT MEDICAL RECORD: [id number] :87 LOCATION:SAROJ D.1278 ADMISSION DATE:07/26/17 SURGEON: FIDEL FERNANDO MD DATE OF OPERATION: 07/26/2017 PREOPERATIVE DIAGNOSES: 1. Breech presentation. 2. Grossly ruptured at term. POSTOPERATIVE DIAGNOSES: 1. Breech presentation. 2. Grossly ruptured at term. PROCEDURE: Primary low transverse section. SURGEON: Fidel Fernando MD ESTIMATED BLOOD LOSS: 1000 cc. INTRAVENOUS FLUIDS: Per anesthesia record. SPECIMENS: Placenta and cord for gases. FINDINGS: 1. Viable infant in the roslyn breech presentation. 2. Placenta delivered manually intact, 3-vessel cord noted. 3. Grossly normal adnexa bilaterally. COMPLICATIONS: None apparent. DESCRIPTION OF PROCEDURE: The patient taken to the operating room where regional anesthesia was achieved without difficulty. The patient was prepped and draped in normal sterile fashion in the dorsal supine position. A De catheter had been placed and was draining freely and SCDs were on and functioning appropriately. At this point, a Pfannenstiel skin incision was made, extended downward to the underlying subcutaneous fat to level of the fascia, which was then excised in the midline with a scalpel and extended bilaterally using the Umana scissors. Superior and inferior aspects of the fascial incision were then grasped with Babs clamps times 2, tented upward, and sharply dissected from the underlying rectus muscle using the Bovie cautery and the Umana scissors. Rectus muscles were then bluntly in the midline and entered sharply at the superior aspect of the incision using the Metzenbaum scissors. Peritoneal incision was then extended laterally and inferiorly using the Metzenbaum scissors. A bladder blade was placed into the pelvis. A bladder flap was created by excising the anterior leaf of the broad ligament across the lower uterine segment. A low transverse incision was made and extended superiorly and inferiorly using the Pelosi method. At this point, the breech was identified and rotated to a backup position. The breech delivered without difficulty. Once the legs out, attention was then turned to the right shoulder. The right arm and shoulder was then delivered without difficulty followed by the left. At this point, the infant's head was delivered atraumatically. was bulb suctioned upon delivery. Cord was clamped times 2, cut, and the infant was handed to the awaiting nursery team. Cord was then obtained for gases. The placenta was then removed manually intact, 3-vessel cord was noted. The uterus was exteriorized, cleared of all clots and OPERATIVE REPORT [id number] HIGH,JAMIE VALERIE debris, and repaired with 0 Vicryl in a running locked fashion times 2. Posterior cul-de-sac was then thoroughly irrigated and the uterus was replaced into the pelvis. The anterior cul-de-sac was then irrigated and the uterine incision was then found to be hemostatic. Counts were correct times 2 for lap, sponges, needles, and instruments. The fascia was repaired with 0 loop PDS times 1 and the skin repaired with nicolette. The patient tolerated the procedure well, transferred to postanesthesia recovery stable without incident. TRANSINT:[id number] Voice Confirmation ID: [id number] DOCUMENT ID: [id number] FIDEL FERNANDO MD at 1704 CC: [id number] DICTATION DATE: 09/15/17313 BOARDING HOUSE MANAGER: 09/15/17 1020 DIS IN 07/28/17 [facility] [address] [place] [address]
== END 2017-07-28 14:00 | disposition home or self-care (01) | DRG 766 ==
LOC: D.LD 04:56
PROVIDERS: Obstetrics & Gynecology; ADMIT Obstetrics & Gynecology
PROC: 10D00Z1 Extraction of Products of Conception, Low, Open Approach (ICD-10-PCS; principal; 2017-07-26 06:00)
DX: O98.32 Other infections with a predominantly sexual mode of transmission complicating childbirth (principal); A56.8 Sexually transmitted chlamydial infection of other sites; Z3A.37 37 weeks gestation of pregnancy; Z37.0 Single live birth; O32.1XX0 Maternal care for breech presentation, not applicable or unspecified

== ENCOUNTER → 2017-09-05 14:51 | Outpatient (CLI) | payer MEDICAID ==
--- NOTE | 2017-09-03 09:22 | PN ---
PATIENT:JAMIE BURNETT MEDICAL RECORD: [id number] LOCATION:D.MRI ADMISSION DATE: 09/05/17 PROGRESS NOTE DATE OF SERVICE: 09/02/2017 ADDENDUM The patient was consulted on last Saturday. I have ordered an MRI for the patient in the lumbosacral region to rule out mass effect and/or sterile abscess. I have talked to radiology for an outpaient MRI and sent on order. Radiology is to contact the patient at the current phone number [phone] and have the patient report for an MRI. At that time, we will review MRI readings with radiology and if possible and no abnormal abscess and/or infectious process, we will consider ordering steroids for the patient to see if there is improvement in symptoms. TRANSINT:[id number] Voice Confirmation ID: [id number] DOCUMENT ID: [id number] CORBIN LIZAMA MD at 0922 CC: [id number] DICTATION DATE: 09/02/17 1109 PULVERIZER TENDER: 09/02/17 [id number] [place] [address]
[~2017-09-05 14:51] MED LIST changes: +HYDROCODONE-APA1 TAB PO; +IBUPROFEN600 MG PO
--- NOTE | 2017-09-10 08:09 | CN ---
PATIENT NAME:JAMIE BURNETT MEDICAL RECORD: [id number] : 86 LOCATION:D.MRI ADMIT DATE: ACCOUNT: [id number] CONSULTING PHYSICIAN: CORBIN LIZAMA MD REFERRING PHYSICIAN: CORBIN LIZAMA MD DATE OF CONSULTATION: Neurology Referral Referral to the neurology department [facility], fax number is [phone]. Ms. Burnett is a 31-year-old female who presented to this service for a . The patient had an unremarkable spinal anesthetic times 1. Unfortunately, the level was not adequate for the procedure. The patient was reprepped and draped with a second spinal anesthetic. The patient's second spinal attempt resulted in an adequate level to allow for to be performed. The patient then presented after routine followup at 1 month at her [facility], Dr. Fernando, for routine followup. Ms Burnett was referred to the anesthesia department because the patient continued to have numbness in a saddle-like distribution of her perineium. On physical exam area of decreased sensation actually extended from just below her umbilicus to mid thigh on both lower extremities. MRI was obtained, was evaluated with radiologist here at [place], which demonstrated total normal anatomy. After reviewing MRI, called [facility] neurology department for a referral for this patient to neurology department at [facility] for consultation and further evaluation. Presumptive diagnosis is cauda equina syndrome. Requesting evaluation for neurology for nerve conduction studies and general neurology consult. It should be noted also that Ms. Burnett's contact information is Maxine Naranjo at [phone]. [facility] will need that information to contact the patient for appointment. I will also attempt to contact the patient to let her know that [facility] will be contacting her for appointment. [facility] will need copy of my last two patient visits, demographic information, insurance information and copy of recent MRI obtained at [place]. TRANSINT:[id number] Voice Confirmation ID: [id number] DOCUMENT ID: [id number] CORBIN LIZAMA MD at 0809 CC: [id number] DICTATION DATE: 09/09/17 1418 SOLAR BUSINESS DEVELOPER: 09/09/17 1612 DEP CLI 09/05/17 [id number] [place] [address]
--- NOTE | 2017-09-11 09:24 | CN ---
PATIENT NAME:JAMIE BURNETT MEDICAL RECORD: [id number] : 86 LOCATION:D.MRI ADMIT DATE: ACCOUNT: [id number] CONSULTING PHYSICIAN: CORBIN LIZAMA MD REFERRING PHYSICIAN: CORBIN LIZAMA MD DATE OF CONSULTATION: ADDENDUM Called Ms. Maxine Naranjo, Ms. Burnett's mother who is her contact to let them know that I was arranging followup at the [facility] Neurology Clinic. Information was to be faxed to [facility] neurology and neurology is to contact Ms. Burnett through Ms. Naranjo at [phone]. I told Ms. Naranjo's caregiver after Ms. Naranjo handed the phone to her that if they had not contacted her within 5-7 days, to please contact me, gave the contact number [phone] and I will see if I could facilitate the consult. TRANSINT:[id number] Voice Confirmation ID: [id number] DOCUMENT ID: [id number] CORBIN LIZAMA MD at 0924 CC: [id number] DICTATION DATE: 09/10/17 1350 SALES ASSISTANT ENTERTAINMENT AND MEDIA: 09/11/17 0611 DEP CLI 09/05/17 [id number] [place] [id number]
== END | disposition home or self-care (01) ==
LOC: D.MRI 14:51
DX: G83.4 Cauda equina syndrome (principal)

== ENCOUNTER 2017-11-04 08:37 | Emergency (ER) | payer MEDICAID | END 2017-11-04 10:29 | disposition home or self-care (01) | LOC: D.ER 08:37 | DX: S93.601A Unspecified sprain of right foot, initial encounter (principal); X58.XXXA Exposure to other specified factors, initial encounter; Y93.89 Activity, other specified; Y92.019 Unspecified place in single-family (private) house as the place of occurrence of the external cause; F17.200 Nicotine dependence, unspecified, uncomplicated ==

== ENCOUNTER 2020-05-10 23:50 | Emergency (ER) | payer SELFPAY ==
[~2020-05-10] VITALS: Ht 170.2 cm; Wt 90.9 kg
[2020-05-10 23:58] VITALS: Ht 170.2 cm; Wt 90.9 kg
[2020-05-11 00:53] VITALS: BP 129/79
== END 2020-05-11 00:53 | disposition home or self-care (01) ==
LOC: D.ER 23:50
DX: S63.501A Unspecified sprain of right wrist, initial encounter (principal); J45.909 Unspecified asthma, uncomplicated; W19.XXXA Unspecified fall, initial encounter; Y93.9 Activity, unspecified; Y92.9 Unspecified place or not applicable

== ENCOUNTER 2021-02-07 13:55 | Outpatient (CLI) | payer MEDICAID ==
[2020-11-10 02:47] VITALS: BMI 33.6
[~2021-02-07 13:55] MED LIST changes: +MACROBID100 MG PO; +PRENAVITE1 TAB PO
== END 2021-02-07 18:10 | disposition home or self-care (01) ==
LOC: D.LDO 13:55
PROVIDERS: ATTEND Obstetrics & Gynecology
DX: O26.899 Other specified pregnancy related conditions, unspecified trimester (principal)

== ENCOUNTER → 2021-03-02 14:02 | Outpatient (CLI) | payer MEDICAID ==
[2020-11-10 02:47] VITALS: BMI 33.6
== END | disposition home or self-care (01) ==
LOC: D.LDO 14:02
PROVIDERS: ATTEND Student in an Organized Health Care Education/Training Program
DX: O47.9 False labor, unspecified (principal)

== ENCOUNTER 2021-03-17 21:21 | Inpatient (IN) | payer MEDICAID ==
[~2021-03-17] VITALS: Ht 172.7 cm; Wt 106.4 kg
--- NOTE | ~2021-03-17 | OP ---
PATIENT NAME: JAMIE GALARZA MEDICAL RECORD: [id number] :87 LOCATION:[id number] ADMISSION DATE:03/17/21 SURGEON: FIDEL FERNANDO MD DATE OF OPERATION: 03/18/2021 PREOPERATIVE DIAGNOSES: 1. Term intrauterine at 37 weeks and 6 days. 2. History of previous section times 2. 3. Patient in labor. POSTOPERATIVE DIAGNOSES: 1. Term intrauterine at 37 weeks and 6 days. 2. History of previous section times 2. 3. Patient in labor. PROCEDURE: Repeat low transverse section. SURGEON: Fidel Fernando MD. ANESTHESIA: Regional via spinal. INTRAVENOUS FLUIDS: Per anesthesia record. ESTIMATED BLOOD LOSS: 1000 mL. SPECIMENS: Placenta and cord for gases. FINDINGS: 1. Viable infant, Apgars 9 at 1, 9 at 5. 2. Placenta delivered manually intact, 3-vessel cord noted. 3. Grossly normal appearing adnexa bilaterally. COMPLICATIONS: None apparent. DESCRIPTION OF PROCEDURE: The patient was taken to the operating room where regional anesthesia was achieved without difficulty. The patient was then prepped and draped in normal sterile fashion in the dorsal supine position. SCDs were on and functioning normally and a De catheter had been placed and was draining freely. Following prep and drape, a repeat Pfannenstiel skin incision was made, extended down through the underlying subcutaneous fat to the level of the fascia. The fascia was then excised in the midline and extended bilaterally using the Umana scissors. The superior and inferior aspects of the fascial incision were then grasped with Babs clamps times 2, tented upward, and sharply dissected from underlying rectus muscle using the Umana scissors and the Bovie cautery. Rectus muscle was then bluntly in the midline. The peritoneum was entered sharply at the superior aspect of the incision. Careful dissection of the peritoneum was performed inferiorly and laterally under direct visualization of the bladder. A bladder blade was placed into the pelvis and multiple adhesions were dissected between the anterior surface of the lower uterine segment and the anterior abdominal wall. When the bladder flap was finished being created, a low transverse incision was made in the uterus with a scalpel and extended using the Pelosi method. The vertex was delivered followed by the body. Infant was bulb suctioned upon delivery. Cord was clamped times 2 and cut and the was handed to the awaiting nursery team. Cord is obtained for gases and the placenta was removed manually intact, OPERATIVE REPORT [id number] JAMIE GALARZA 3-vessel cord was noted. The uterus was exteriorized of all clots and debris and aggressively massaged until good uterine tone was noted. The uterine incision was repaired with 0 Vicryl in a running locked fashion times 2. Good hemostasis noted. Posterior cul-de-sac was then thoroughly irrigated and the uterus was returned to the pelvis. Anterior cul-de-sac was thoroughly irrigated and the uterine incision was found to be hemostatic. Counts were correct times 2 for needles, sponges, and instruments. The fascia was repaired with 0 looped PDS times 1 and the skin repaired with nicolette. The patient was transferred to postanesthesia recovery stable without incident. TRANSINT:[id number] Voice Confirmation ID: [id number] DOCUMENT ID: [id number] FIDEL FERNANDO MD CC: [id number] DICTATION DATE: 04/05/21640 NOZZLE TENDER: 04/05/21823 DIS IN 03/20/21 [facility] [id number] [place] [address]
[2021-03-17 22:48] LABS: BILIRUBIN NEGATIVE (NEGATIVE); KETONE NEGATIVE mg/dL (< 1+); NITRITE NEGATIVE (NEGATIVE); PH 7.5 (5.0-8.0); SQUAMOUS EPITHELIAL 1 HPF (0-4); UROBILINOGEN NORMAL mg/dL (< 2); WHITE CELLS - URINE 2 HPF (0-4)
[2021-03-17 23:32] LABS: HEMATOCRIT 29.5 % (36.0-48.0); HEMOGLOBIN 9.6 g/dL (12-16); MCH 23.7 pg (26.0-34.0); MCHC 32.4 g/dL (31.0-37.0); MCV 73.2 fL (80.0-100.0); MEAN PLATELET VOLUME 8.1 fL (7.4-10.4); RBC 4.03 10x6/uL (4.00-5.40); RDW 15.5 % (11.5-14.5); WBC 11.2 10x3/uL (4.8-10.8)
[2021-03-17 23:50] VITALS: BP 120/78; Ht 172.7 cm; Wt 106.4 kg
--- NOTE | 2021-03-18 02:55 | NUR ---
Report received from Recovery nurse at bedside.
[2021-03-18 03:00] VITALS: BP 115/56
--- NOTE | 2021-03-18 03:04 | NUR ---
PAGED DR. FRIAS CONCERNING AUTOMATED TELLER MANAGER ORDERS. DR. FRIAS REPORTS HE IS PUTTING THEM IN NOW.
--- NOTE | 2021-03-18 03:56 | NUR ---
PAGED DR. FRIAS TO REPORT OOZING AND BLEEDING AT INCISIONAL SITE.
--- NOTE | 2021-03-18 05:18 | NUR ---
No more oozing noted around incision at this time. Tasneem pad with half dollar sized area of lochia rubra noted.
[2021-03-18 07:20] VITALS: BP 112/62
--- NOTE | 2021-03-18 07:20 | NUR ---
RECEIVED PT LYING IN SEMI-FORD'S POSITION IN BED. AWAKE. AAO X 3. VSS. HRRR WITHOUT AUDIBLE MURMUR. BBS CLEAR. BS ABSENT IN LOWER QUADS. ABDOMEN SOFT/NON-DISTENDED. FUNDUS FIRM AT U/U. RUBRA LOCHIA SMALL AMT. PERIPADS AND TOWELS CHANGED. PT MOVES WELL IN BED. ABDOMINAL DRESSING WITH FOAM TAPE-DRY/INTACT. DRESSING REMOVED. SMALL AMT OF SEROSANGUINOUS DRAINAGE NOTED ON 4X4'S. INCISION WITHOUT REDNESS OR SWELLING. SMALL AMT OF SEROSANGUINOUS DRAINAGE NOTED TO PT LEFT SIDE OF INCISION. STERILE 4X4'S AND PAPER TAPE APPLIED TO INCISION. REAGAN TO GRAVITY DRAINING CONCENTRATED YELLOW URINE. SCDS ON BLE. PUMP ON. PIV OF NS WITH PITOCIN INFUSING AT 125 ML/HR TO LEFT HAND. SITE CLEAR. DILAUDID TEAROOM HOST PER PT. PT STATES PAIN OF "5" ON 0-10 PAIN SCALE. STATES PAIN MED RELIEVING PAIN. FRESH ICE PACK TO INCISION. PT PROVIDED WITH BROTH, APPLE AND CRANBERRY JUICE PER PT REQUEST. PT REPOSITIONS TO HIGH FORD'S FOR BREAKFAST. PT DENIES PASSING GAS. SR UP X 2. CALL LIGHT IN REACH.
[2021-03-18 08:14] LABS: BASOPHILS 0.2 % (0-2); EOSINOPHILS 0.5 % (0-7); HEMATOCRIT 30.6 % (36.0-48.0); HEMOGLOBIN 9.9 g/dL (12-16); LYMPHOCYTES 11.5 % (15-50); MCH 23.8 pg (26.0-34.0); MCHC 32.2 g/dL (31.0-37.0); MCV 73.8 fL (80.0-100.0); MEAN PLATELET VOLUME 7.5 fL (7.4-10.4); MONOCYTES 5.3 % (2-11); NEUTROPHILS 82.5 % (40-80); RBC 4.15 10x6/uL (4.00-5.40); RDW 15.7 % (11.5-14.5)
[2021-03-18 08:18] LABS: PLATELET COUNT 312 10x3/uL (130-400); WBC 15.3 10x3/uL (4.8-10.8)
[2021-03-18 08:36] VITALS: BP 112/55
--- NOTE | 2021-03-18 09:15 | NUR ---
PT SITTING UP IN BED. CONSUMING CLEAR LIQUIDS. PERIPAD CHANGED WITH SCANT AMT OF RUBRA LOCHIA NOTED. DRESSING DRY WITHOUT DRAINAGE NOTED. PT STATES PAIN OF "4" ON 0-10 PAIN SCALE. STATES PAIN MED (HANDBAG FRAMER) RELIEVING PAIN. PT STATES BELCHING SOME NOW.
--- NOTE | 2021-03-18 10:17 | NUR ---
PT SITTING UP IN BED. VISITS WITH SO. CALL LIGHT AND SENIOR SQL DATABASE DEVELOPER BUTTON IN PT REACH. PT STATES SO GOING HOME TO CARE FOR 4 YEAR OLD CHILD. PT DENIES NEEDS OR C/O.
--- NOTE | 2021-03-18 11:30 | NUR ---
PT LYING SUPINE IN BED. ATTEMPTING TO BREASTFEED . PT STATES "I CAN'T STAY AWAKE". REQUESTS AND RECEIVES RETURNED TO NURSERY TO ALLOW PT TO REST.
--- NOTE | 2021-03-18 12:00 | NUR ---
DR FRIAS VISITS WITH PT.
--- NOTE | 2021-03-18 12:15 | NUR ---
PT STATES DESIRE TO REST. LIGHTS OUT FOR REST. CALL LIGHT IN REACH. SR UP X 2.
--- NOTE | 2021-03-18 13:56 | NUR ---
PT LYING SUPINE IN BED. EYES CLOSED. RESP NON-LABORED. PT NOT DISTURBED TO ALLOW FOR REST. SR UP X 2. CALL LIGHT IN REACH.
--- NOTE | 2021-03-18 14:48 | NUR ---
TORADOL 30 MG GIVEN SIVP OVER 2 MINUTES. PT INSTRUCTED ON MED. VERBALIZES UNDERSTANDING. PIV CONVERTED TO SALINE LOCK. FLUSHES EASILY WITH 10 ML NS. SITE CLEAR. REAGAN DC'D WITH 900 ML OF CLEAR, YELLOW URINE NOTED IN BAG.
--- NOTE | 2021-03-18 15:00 | NUR ---
PT OOB AND AMB TO BR TO VOID. SLOW, STEADY GAIT NOTED.
--- NOTE | 2021-03-18 15:15 | NUR ---
PT UNABLE TO VOID. HALF-DOLLAR SIZED CLOT NOTED IN SPECIPAN. PERICARE DONE PER PT. PANTIES AND PAD ON. ORAL CARE DONE PER PT AT THIS TIME.
--- NOTE | 2021-03-18 15:30 | NUR ---
PT AMBULATORY BACK TO BED PER SELF. STEADY GAIT NOTED. PT JANE ACTIVITY WELL.
--- NOTE | 2021-03-18 17:30 | NUR ---
PT SITTING UP IN BED. INFANT. DENIES PAIN OR NEEDS.
--- NOTE | 2021-03-18 18:29 | NUR ---
PT ENCOURAGED TO ATTEMPT TO VOID. PT OOB AND AMB TO BR TO VOID.
--- NOTE | 2021-03-18 19:03 | NUR ---
500 ML OF BLOOD-TINGED URINE NOTED IN SPECIPAN. PT BACK IN BED. TOLERATES ACTIVITY WELL.
--- NOTE | 2021-03-18 19:55 | NUR ---
INTRODUCED SELF TO PT. NURSE TO PROVIDE CARE THIS SHIFT. DISCUSSED CONTINUED PLAN OF CARE WITH PT. IN REGARDS TO MEDICATIONS ORDERED FOR PAIN RELIEF AND STOOL SOFTENER AND GAS RELIEF. PT. REPORTS "IM KIND OF SCARED TO TAKE ANY PAIN MEDICINE BECAUSE I REACT SO DIFFERENT WITH MEDICATIONS". INSTRUCTED PT. THAT IT IS NORMAL TO FEEL "STRANGE" WHEN TAKING SOME PAIN MEDICATIONS BUT THAT SHE SHOULDN'T HAVE TO HURT BECAUSE SHE DOESN'T WANT TO FEEL DIFFERENT. PT. REPORTS PAIN AT "2" WHEN SITTING BUT AT "8" WHEN GETTING UP TO GO TO THE BATHROOM. INQUIRED WITH PT. IF SHE WOULD LIKE TO TRY THE PAIN MEDICATION AT THIS TIME. PT. REPORTS "I GUESS SO". ADVISED PT. THAT I WILL BRING THE MEDICINE TO HER IN A FEW MINUTES. VITALS TAKEN AND STABLE. SEE GRAPH. ASSESSMENT COMPLETED. SEE FLOWSHEET. BOWEL SOUNDS HYPOACTIVE X 4 AND PT. DENIES PASSING GAS AT THIS TIME. BIKINI LINE INCISION WITH CELINE IS C/D/I. FUNDUS FIRM, MIDLINE, U/-2 WITH LIGHT LOCHIA RUBRA NOTED. NO CLOTS EXPELLED. PT. REPORTS HAVING GOTTEN UP AND USED THE BATHROOM AND NEEDS NUNS CAP EMPTIED. 400 ML BLOOD TINGED URINE EMPTIED AT THIS TIME.
[2021-03-18 20:00] VITALS: BP 100/55
--- NOTE | 2021-03-18 20:00 | NUR ---
NORCO 10/325 MG 1 TAB FOR PAIN ADMINISTERED ORALLY PER MD ORDERS. MYLICON 80 MG TABS (2) ADMINISTERED AND PT. INSTRUCTED TO CHEW AND THEN SWALLOW. COLACE 100 MG TABLET ADMINISTERED AFTER INSTRUCTING PT. REGARDING HOW LONG TO CONTINUE TAKING MEDICATION. PT. DENIES FURTHER NEEDS AT THIS TIME. WILL CONT. TO MONITOR.
--- NOTE | 2021-03-18 21:15 | NUR ---
PT. HOLDING INFANT LOVINGLY UPON ENTERING ROOM. PT. REPORTS "IM GOOD" WHEN ASKED HOW SHE IS DOING AT THIS TIME. PT. RATES PAIN AT "0" AND REPORTS "I DONT HAVE ANY NOW" WHEN ASKED HOW HER PAIN IS DOING. PT. REPORTS "NO, NOT REALLY" WHEN ASKED IF SHE IS FEELING "WEIRD" AFTER TAKING PAIN MEDICATION. PT. DENIES FURTHER NEEDS AT THIS TIME. WILL CONT. TO MONITOR.
--- NOTE | 2021-03-18 22:40 | NUR ---
PT. HOLDING INFANT LOVINGLY UPON ENTERING ROOM. PT. DENIES NEEDS AT THIS TIME.
--- NOTE | 2021-03-19 00:32 | NUR ---
PT. UPON ENTERING ROOM. PT. REPORTS "WELL SHE HAS BEEN GOING FOR ABOUT AN HOUR SO NOW" WHEN ASKED IF SHE IS ALMOST FINISHED FEEDING SO THAT I CAN GET HER VITALS RIGHT NOW. INSTRUCTED PT. THAT SHE SHOULD NOT REALLY FEED FOR OVER 30 MINUTES BECAUSE AFTER THAT THEY ARE JUST BURNING MORE CALORIES THAN THEY ARE CONSUMING. PT. VERBALIZES UNDERSTANDING AND STOPS FEEDING AT THIS TIME. PT. REPORTS "ITS NOT BAD UNTIL I GET UP AND WALK AROUND" WHEN ASKED REGARDING PAIN AT THIS TIME. PT. RATES AT "8" WHEN SHE IS GETTING UP TO THE BATHROOM. INQUIRED IF PT. WOULD LIKE PAIN MEDICATION AT THIS TIME. PT. REPORTS "YEAH I THINK I WILL" WHEN ASKED IF SHE WOULD LIKE PAIN MEDICATION AT THIS TIME. ADVISED PT. I WILL BE RIGHT BACK WITH MEDICATION.
--- NOTE | 2021-03-19 00:37 | NUR ---
NORCO 10/325 MG 1 TAB AND MOTRIN 600 MG 1 TAB ADMINISTERED ORALLY PER MD ORDERS AND PT. REPORT OF PAIN WHEN MOVING ABOUT. VITALS TAKEN AND STABLE. SEE GRAPH. PT. REPORTS HAVING GOTTEN UP TO BATHROOM AGAIN. 400 MLS BLOODY TINGED URINE EMPTIED FROM NUNS CAP. PT. DENIES FURTHER NEEDS AT THIS TIME. WILL CONT. TO MONITOR.
[2021-03-19 00:40] VITALS: BP 108/54
--- NOTE | 2021-03-19 01:23 | NUR ---
PT. RESTING WITH EYES CLOSED UPON ENTERING ROOM. NO SIGNS OF DISTRESS NOTED. RESP. ARE EVEN AND UNLABORED. PT. NOT DISTURBED.
--- NOTE | 2021-03-19 04:25 | NUR ---
INFANT OUT TO ROOM VIA CRIB FOR FEEDING. PT. AWAKENS UPON ENTERING ROOM. PT. INSTRUCTED IT IS TIME FOR INFANT TO FEED. HANDED TO PT. AND BOTTLE PROVIDED. PT. REPORTS "LIKE A 4 OR SO" WHEN ASKED WHAT HER PAIN LEVEL IS. INQUIRED IF PT. WOULD LIKE TO TAKE SOME PAIN MEDICATION NOW. PT. REPORTS "YEAH, I PROBABLY WILL". PT. ALSO REQUEST ORANGE JUICE TO DRINK.
--- NOTE | 2021-03-19 04:29 | NUR ---
LARGE ORANGE JUICE PROVIDED REQUESTED. TEMP. TAKEN ORALLY AT THIS TIME. INSTRUCTED PT. TO CALL ME WHEN SHE IS FINISHED FEEDING SO I CAN FINISH VITAL SIGNS. PT. VERBALIZES UNDERSTANDING. NORCO 10/325 MG 1 TAB ADMINISTERED ORALLY PER MD ORDERS AND PT. COMPLAINT OF PAIN THAT RATES AT "4" ON 0-10 SCALE.
[2021-03-19 04:30] VITALS: BP 100/60
--- NOTE | 2021-03-19 05:55 | NUR ---
pt. resting with eyes closed upon entering room. no signs of distress noted. resp. are even and unlabored. pt. not disturbed.
[2021-03-19 07:40] VITALS: BP 107/61
--- NOTE | 2021-03-19 07:50 | NUR ---
SHIFT ASSESSMENT CMPLETED PER FLOWSHEET. VSS. FUNDUS FIRM, MIDLINE AND UU WITH SMALL AMONT OF RUBRA LOCHIA, NO CLOTS NOTED. COMPLAINS OF ABD AND INCISIONAL DISCOMFORT 3/10, MEDICATED PER EMAR. LOW TRANSVERSE ABD INCISION WELL APPROXIMATED, INACT, NO DRAINAGE. DRESSING REAPLIED AFTER ASSESSMENT. INSTRUCTED ON INCISIONAL CARE AND CLEAN DRESSING PLACED OVER INCISION. EDUCATED ON S/S OF INFECTIONAND ACTIVITY LIMITATIONS, VERBALIZED UNDERSTANDING. REPORTS PASSING FLATUS AND VOIDING WITHOUT DIFFICULTY. ENCOURAGE TO CONTINUE TO AMBULATE IN ROOM, VERBALIZED UNDERSTANDING. PT DENIES NEEDS AT THIS TIME. IN ARMS INITIATED WITHOUT ASSISTANCE. POC DISCUSSED, VERBALIZED UNDERSTANDING AND DENIES QUESTIONS. BED IN LOW POSITION WITH SRUPX2. CALL LIGHT AND PHONE WITHIN REACH. WILL CONTINUE TO MONITOR.
[2021-03-19 11:24] VITALS: BP 98/54
--- NOTE | 2021-03-19 11:24 | NUR ---
PT STATES SHE FEELS HOT, TEMP 98.3 ORAL, VSS. COOL WASH CLOTHE PROVIDED, TEMP ADJ IN ROOM, BLANKET REMOVED, SHEET LEFT IN PLACE. NO FURTHER NEEDS AT THIS TIME. WILL CONTINUE TO MONITOR CLOSELY
[2021-03-19 13:13] LABS: BASOPHILS 0.2 % (0-2); HEMATOCRIT 29.2 % (36.0-48.0); HEMOGLOBIN 9.3 g/dL (12-16); LYMPHOCYTES 20.1 % (15-50); MCH 23.6 pg (26.0-34.0); MCHC 31.9 g/dL (31.0-37.0); MCV 74.1 fL (80.0-100.0); MEAN PLATELET VOLUME 7.8 fL (7.4-10.4); MONOCYTES 6.9 % (2-11); NEUTROPHILS 70.8 % (40-80); PLATELET COUNT 349 10x3/uL (130-400); RBC 3.94 10x6/uL (4.00-5.40); RDW 15.4 % (11.5-14.5)
[2021-03-19 13:22] LABS: WBC 11.3 10x3/uL (4.8-10.8)
--- NOTE | 2021-03-19 15:20 | NUR ---
PT REQUEST PAIN MEDICATIN, PER EMAR MOTRIN GIVEN. PT RATES PAIN 6/10 WILL CONTINUE TO MONITOR CLOSELY.
--- NOTE | 2021-03-19 15:40 | NUR ---
PT STATES SHE WOULD LIKE TO TAKE A SHOWER. TOWELS, SOAP, SHAMPOO PROVIDED, IV REMOVED, BANDADE IN PLACE, LINEN CHANGED, CLEAN GOWN PROVIDED, PT ABLE TO SHOWER ON OWN WITHOUT ASSISTANCE. WILL CONTINUE TO MONITOR CLOSELY.
[2021-03-19 20:00] VITALS: BP 99/58
--- NOTE | 2021-03-19 20:00 | NUR ---
RN TO BEDSIDE FOR SHIFT ASSESSMENT. PT AWAKENED. PT GROGGY, BUT ABLE TO ANSWER QUESTIONS APPROPRIATELY. PAIN AND NEEDS ASSESSED. PT REPORTS ABD PAIN 3/10. REQUESTED NEED FOR SLEEP. PT INFORMED THAT AFTER SHIFT ASSESSMENT IS COMPLETED. PT WILL BE ALLOWED TO REST MUCH POSSIBLE. PT AGREEABLE. SEE FLOWSHEET FOR ASSESSMENT. MOTRIN AND COLACE OFFERED NOW TO DECREASE NUMBER OF ENTRIES TO THE ROOM. PT AGREEABLE. SEE EMAR FOR DOC.
--- NOTE | 2021-03-19 20:17 | NUR ---
AFTER MEDICATIONS GIVEN. PT UP TO BR W/OUT ASSIST. OFFER MADE TO REFILL ICE WATER AND TO BRING PT SOMETHING TO EAT. PT ACCEPTS. SANDWICH TRAY, VANILLA PUDDING, LAN CRACKERS AND ICE WATER SERVED. PT DENIES FURTHER NEEDS.
--- NOTE | 2021-03-19 22:00 | NUR ---
ROUNDS MADE. PT SITTING UP IN BED W/BABY UP IN ARMS TALKING ON THE PHONE. DENIES PAIN OR NEEDS AT THIS TIME.
--- NOTE | 2021-03-19 23:08 | NUR ---
ROUNDS MADE. PT SITTING UP IN BED W/BABY UP IN ARMS PREPARING FOR . DENIES PAIN OR NEEDS.
--- NOTE | 2021-03-20 01:04 | NUR ---
ROUNDS MADE. PT SITTING UP IN BED W/BABY UP IN ARMS. DENIES PAIN OR NEEDS. DECLINES OFFER TO BRING HER SOMETHING TO EAT OR DRINK AT THIS TIME.
--- NOTE | 2021-03-20 03:00 | NUR ---
ROUNDS MADE. PT AWAKE, SITTING UP IN BED W/BABY UP IN ARMS. PAIN AND NEEDS ASSESSED. PT REPORTS BACK PAIN AND LEFT LEG PAIN THAT SHE RATES 4/10. MOTRIN OFFERED. PT ACCEPTS. SEE EMAR. LAN CRACKERS,SALTINE CRACKERS AND PEANUT BUTTER AND ICE WATER SERVED. PT DENIES FURTHER NEEDS AT THIS TIME.
--- NOTE | 2021-03-20 05:00 | NUR ---
ROUNDS MADE. PT AWAKE, SITTING UP IN BED PERFORMING I.S. BABY AT SIDE IN BED. PT DENIES PAIN OR NEEDS. DECLINES OFFER TO BRING HER ANYTHING TO EAT OR DRINK.
[2021-03-20 06:07] LABS: RAPID PLASMA REAGIN Non Reactive (Non Reactive)
--- NOTE | 2021-03-20 06:23 | NUR ---
ROUNDS MADE. PT CURRENTLY . DENIES PAIN OR NEEDS.
[2021-03-20 07:40] VITALS: BP 102/55
--- NOTE | 2021-03-20 07:40 | NUR ---
PT SITTING UP IN BED. AWAKE. VSS. HRRR WITHOUT AUDIBLE MURMUR. BBS CLEAR. BS X 4. ABDOMEN SOFT/NON-DISTENDED. FUNDUS FIRM AT U/U. RUBRA LOCHIA SMALL AMT. NO CLOTS OR HEAVY BLEEDING PER PT STATES. NEG HOMANS' SIGN. PPP. MILD, NON-PITTING EDEMA NOTED. ABDOMINAL INCISION WITHOUT REDNESS, SWELLING OR DRAINAGE NOTED. PT DENIES PAIN. STATES PASSING GAS AND HAS HAD BM. SR UP X 2. CALL LIGHT IN REACH.
--- NOTE | 2021-03-20 09:22 | NUR ---
PT SITTING UP IN BED. CARING FOR INFANT. DENIES C/O OR NEEDS.
--- NOTE | 2021-03-20 10:33 | NUR ---
PT SITTING UP IN BED. CARING FOR INFANT. FRESH ICE WATER PROVIDED TO PT.
--- NOTE | 2021-03-20 12:15 | NUR ---
PT SITTING UP IN BED. CARING FOR INFANT. DENIES C/O OR NEEDS.
--- NOTE | 2021-03-20 13:35 | NUR ---
DR FRIAS ON UNIT. RX PLACED ON CHART. ORDER RECEIVED TO DC PT HOME.
[2021-03-20] MEDS ORDERED: MOTRIN600 MG PO (14:27)
[2021-03-20] MEDS ORDERED: HYDROCODON-ACE1 EA10 PO (14:27)
--- NOTE | 2021-03-20 15:35 | NUR ---
PT SITTING UP IN BED. EYES CLOSED. RESP NON-LABORED. PT NOT DISTURBED TO ALLOW FOR REST.
--- NOTE | 2021-03-20 15:43 | NUR ---
T/C TO DR FRIAS TO CLARIFY PT OK TO DISCHARGE HOME. STATES PT OK TO DISCHARGE HOME TODAY.
--- NOTE | 2021-03-20 16:31 | NUR ---
PT REFUSES MMR VACCINE.
--- NOTE | 2021-03-20 17:00 | NUR ---
PT SITTING UP IN BED. INFANT. INSTRUCTED TO NOTIFY NURSE WHEN FINISHED SO DISCHARGE INSTRUCTIONS CAN BE GIVEN TO PT. PT VERBALIZES UNDERSTANDING.
--- NOTE | 2021-03-20 17:20 | NUR ---
PT DIRECTOR OF DANCE LIGHT. THIS NURSE TO ROOM. PT REQUESTS BREAST PUMP. NURSERY NOTIFIED.
--- NOTE | 2021-03-20 17:55 | NUR ---
PT MERGERS AND ACQUISITIONS MANAGER LIGHT. STATES READY FOR DISCHARGE PAPERS. THIS NURSE TO ROOM. NURSERY STAFF IN ROOM AT THIS TIME.
--- NOTE | 2021-03-20 18:54 | NUR ---
DISCHARGE INSTRUCTIONS GIVEN TO PT. PT VERBALIZES UNDERSTANDING OF ALL INSTRUCTIONS. COPIES GIVEN TO PT. RX FOR NORCO AND IBUPROFEN GIVEN TO PT. PT AWAITING RIDE.
== END 2021-03-20 20:55 | disposition home or self-care (01) | DRG 788 ==
LOC: D.LD 21:21 → D.LDO 21:21 → D.LD 23:47
PROVIDERS: ADMIT Obstetrics & Gynecology; ATTEND Obstetrics & Gynecology
PROC: 10D00Z1 Extraction of Products of Conception, Low, Open Approach (ICD-10-PCS; principal; 2021-03-18 00:20)
DX: O98.32 Other infections with a predominantly sexual mode of transmission complicating childbirth (principal); Z3A.37 37 weeks gestation of pregnancy; A63.0 Anogenital (venereal) warts; O99.344 Other mental disorders complicating childbirth; F32.9 Major depressive disorder, single episode, unspecified; Z37.0 Single live birth; G62.9 Polyneuropathy, unspecified; J45.909 Unspecified asthma, uncomplicated